=== PATIENT | female | born 1985 ===

== ENCOUNTER 2020-10-15 09:58 | Emergency (ER) | payer MEDICAID ==
[~2020-10-15] VITALS: Ht 162.6 cm; Wt 66.5 kg
[2020-10-15 10:01] VITALS: BP 119/71
--- NOTE | 2020-10-15 10:06 | NUR ---
general technician: pt states that she is unable to open her eyes D/T pain, unable to vomplete [facility] at this time
[2020-10-15] MEDS ORDERED: PROPARACAINE OPHTH 0.5%, 15ML EACHEYE ONE (10:30)
[2020-10-15] MEDS ORDERED: FLUORESCEIN OPHTHALMIC 1 MG STRIP EACHEYE ONE (10:30)
[2020-10-15] MEDS ORDERED: PROPARACAINE OPHTH 0.5%, 15ML ONE (10:31)
[2020-10-15] MEDS ORDERED: FLUORESCEIN OPHTHALMIC 1 MG STRIP ONE (10:31)
--- NOTE | 2020-10-15 10:39 | NUR ---
pa at bs
--- NOTE | 2020-10-15 11:10 | NUR ---
Patient given discharge instructions and they have confirmed that they understand the instructions. Patient ambulatory with steady gait.
== END 2020-10-15 11:11 | disposition home or self-care (01) ==
LOC: ED 11:05
DX: H10.213 Acute toxic conjunctivitis, bilateral (principal)
CPT/HCPCS: 99283